=== PATIENT | male | born 1965 | race American Indian/Alaskan Native ===

== ENCOUNTER 2018-10-20 23:11 | Emergency (ER) | payer OTHER ==
[~2018-10-20 23:11] MED LIST: ADRENALIN ONE
--- NOTE | 2018-10-20 23:50 | Emergency Department Report ---
ED General Adult HPI - General Stated complaint: CARDIAC ARREST Time Seen by Provider: 10/20/18 23:44 - History of Present Illness Initial comments: 53 y.o. male with PMHx of Asthma presents after being brought in by EMS after being found down on the toilet. EMS states that patient had a trace amount of blood in the stool, likely secondary to a hemorrhoid according to them. EMS states that bystanders state that they do not known how long patient was down for. Upon arrival patient was noted to be in PEA at 2245 and patient was intubated with an LMA and CPR was initiated. Patient had an Accu-Chek of 121. ED Review of Systems ROS: Stated complaint: CARDIAC ARREST Other details as noted in HPI Comment: Patient presented unresponsive ED Physical Exam - General Limitations: Other (Unresponsive) General appearance: other (Unresponsive; GCS 3T) - Head Head exam: Present: atraumatic, normocephalic - Eye Eye exam: Present: other (fixed and dilated) - ENT ENT exam: Present: mucous membranes dry, other (LMA present in oropharynx) - Neck Neck exam: Present: normal inspection - Respiratory Respiratory exam: Present: other (breath sounds appreciated with bag valve mask ventilation; coarse breath sounds bilaterally in lung bases). Absent: respiratory distress - Cardiovascular Cardiovascular Exam: Present: other (No palpable pulses present in carotid, femoral, or radial distribution). Absent: systolic murmur, diastolic murmur, rubs, gallop - GI/Abdominal GI/Abdominal exam: Present: distended - Rectal Rectal exam: Present: deferred - Extremities Exam Extremities exam: Present: normal inspection - Back Exam Back exam: Present: normal inspection - Neurological Exam Neurological exam: Present: other (not oriented to person place or time; GCS 3T) - Skin Skin exam: Present: normal color. Absent: rash ED Course Vital Signs 10/20/18 23:11 Pulse Rate 0 L Respiratory 8 L Rate ED Medical Decision Making - Medical Decision Making Patient was brought in by EMS. Patient received continuous CPR with Mo device. Patient was intubated with an LMA by EMS. Patient received 4 rounds of epi before arrival here in the emergency department. Patient received 2 subsequent doses of epinephrine as well as bicarbonate while here in the emergency department. Patient had no pulse present despite these interventions. Patient had no contractility of the heart on bedside ultrasound examination as well. - Differential Diagnosis Cardiac Arrest; Pulmonary Arrest Critical care attestation.: If time is entered above; I have spent that time in minutes in the direct care of this critically ill patient, excluding procedure time. ED Disposition Clinical Impression: Cardiac arrest Disposition: DC-20 Is pt being admited?: No Condition: Undetermined Time of Disposition: 23:48 Print Language: PALAUAN
== END 2018-10-21 06:09 ==
LOC: ED 23:11
DX: I46.9 Cardiac arrest, cause unspecified (principal)
CPT/HCPCS: 92950; 99285; J0171